=== PATIENT | male | born 1980 | race Hispanic/Latino ===

== ENCOUNTER 2023-03-05 18:08 | Emergency (ER) | payer OTHER ==
[~2023-03-05] VITALS: Ht 170.2 cm; Wt 77.1 kg
[2023-03-05 18:22] VITALS: BP 134/95; PULSE 74; RESP 16; O2SAT 100
[2023-03-05] MEDS ORDERED: FLUORESCEIN SODIUM 1 STRIP STRIP OP SCH (20:30)
[2023-03-05] MEDS ORDERED: TETANUS/DIPHTHERIA TOXOID [ADULT] 0.5 ML VIAL IM ONE (20:30)
[2023-03-05] MEDS ORDERED: TETRACAINE HCL 0.5% 4 ML OPHTH SOLN OP SCH (20:30)
[2023-03-05] MEDS ORDERED: MOXIFLOXACIN HCL 0.5% 3ML DROPS OD SCH (21:00)
[2023-03-05] MEDS ORDERED: HYDROCODONE/ACETAMINOPHEN 5/325 MG TAB PO ONE (21:00)
[2023-03-05] MEDS ORDERED: KETOROLAC 60 MG VIAL (30MG/ML) IM ONE (21:00)
[2023-03-05] MEDS ORDERED: ACET-66 PO (21:02)
[2023-03-05] MEDS ORDERED: NAPR-1023 PO (21:02)
== END 2023-03-05 21:21 | disposition home or self-care (01) ==
LOC: EDH 18:08
DX: H16.002 Unspecified corneal ulcer, left eye (principal); Z79.899 Other long term (current) drug therapy
CPT/HCPCS: 99284; 87070; 87076; 90714; 96372; 90471; J1885